=== PATIENT | female | born 1975 | race Caucasian/White ===

== ENCOUNTER 2020-09-14 18:14 | Emergency (ER) | payer MEDICAID ==
[~2020-09-14] VITALS: Ht 154.9 cm; Wt 109.1 kg
[2020-09-14] MEDS ORDERED: SODIUM CHLORIDE 0.9% 1,000 ML IV ONE (22:15)
[2020-09-14] MEDS ORDERED: ACETAMINOPHEN 500 MG TABLET PO ONE (22:15)
[2020-09-14] MEDS ORDERED: KETOROLAC TROMETHAMINE 30 MG/ML VIAL IVP ONE (22:45)
[2020-09-14 22:47] VITALS: BP 132/78
== END 2020-09-15 00:15 | disposition home or self-care (01) ==
LOC: EMS 18:14
DX: B34.9 Viral infection, unspecified (principal); M54.2 Cervicalgia; Z20.822 Contact with and (suspected) exposure to COVID-19
CPT/HCPCS: 81025; 96361; 96374; 99283; J1885; J7030; U0003